=== PATIENT | male | born 1930 | race Caucasian/White ===

== ENCOUNTER 2016-08-14 00:25 | Inpatient (IN) | payer MEDICARE ==
[~2016-08-14] VITALS: Ht 172.7 cm; Wt 73.2 kg
[~2016-08-14 00:25] MED LIST: CIPRO750 MG PO; CIPROFLOXACN500 MG PO; CLONIDINE0.1 MG OR; CLONIDINE0.1 MG PO; DENIES CURRENT MEDS; LABETALOL100 MG OR; LISINOP/HCTZ1 TA1 PO; LISINOPRIL10 MG OR; LISINOPRIL20 MG OR; LORTAB 5 OR; MEDDOSEPAK OR; NAPROSYN500 MG PO; PERCOCET 5/325M1 TAB OR; PROCARDIA10 MG OR; ZYLOPRIM300 MG OR; [UNRECOGNIZED DRUG - REMARK]
--- NOTE | 2016-08-14 00:40 | NUR ---
UNABLE TO CONFIRM MEDICATIONS. PATIENT IS CONFUSED.
[2016-08-14 01:18] LABS: HEMATOCRIT 29.4 % (39.0-50.0); HEMOGLOBIN 9.5 g/dl (14.0-18.0); IMMATURE GRANULOCYTES 0.2 % (0.0-1.0); MEAN CELL VOLUME 96.1 fL CALC (80.0-100.0); MEAN CORPUSCULAR HGB CONC 32.3 g/L CALC (32.0-36.0); NEUT# 4.29 thou/uL (1.82-7.42); RED BLOOD COUNT 3.06 mill/uL (4.70-6.10); RED CELL DISTRI WIDTH 14.4 % (11.5-15.5)
[2016-08-14 01:19] LABS: URINE BILIRUBIN - DIPSTICK NEGATIVE (NEGATIVE); URINE BLOOD DIPSTICK SMALL (NEGATIVE); URINE CLARITY CLEAR; URINE COLOR YELLOW; URINE GLUCOSE - DIPSTICK NEGATIVE (NEGATIVE); URINE KETONE NEGATIVE (NEGATIVE); URINE LEUK ESTERASE NEGATIVE (NEGATIVE); URINE NITRITE - DIPSTICK NEGATIVE (Negative); URINE PH 5.5 (4.5-8.0); URINE PROTEIN - DIPSTICK 100 mg/dL (NEG-TRACE); URINE SPECIFIC GRAVITY 1.025
[2016-08-14 01:25] LABS: BARBITURATES NEGATIVE (NEGATIVE); COCAINE NEGATIVE (NEGATIVE); METHADONE NEGATIVE (NEGATIVE); OXCYCODONE NEGATIVE (NEGATIVE); TETRAHYDROCANNABIONOL NEGATIVE (NEGATIVE); TRICYLIC ANTIDEPRESSANTS NEGATIVE (NEGATIVE)
[2016-08-14 01:33] LABS: URINE HYALINE CAST RARE lpf (NONE-RARE); URINE MUCUS RARE hpf (NONE-FEW); URINE SQUAMOUS EPITHELIAL CELL RARE EPI/hpf (0-FEW); URINE WBC 0-2 WBC/hpf (0-5)
[2016-08-14 01:37] LABS: ALBUMIN 3.4 g/dL (3.2-5.0); BILIRUBIN, TOTAL 0.9 mg/dL (0.0-1.4); CALCIUM 8.8 mg/dL (8.4-10.2); CREATININE 3.5 mg/dL (0.7-1.3); POTASSIUM 3.6 mmol/l (3.5-5.1); TOTAL PROTEIN 6.6 g/dL (6.3-8.2)
--- NOTE | 2016-08-14 01:48 | NUR ---
PT WITH EYES CLOSED, NO DISTRESS NOTED. CALL AGUILAR IN REACH.
--- NOTE | 2016-08-14 02:12 | NUR ---
PT TO CT.
--- NOTE | 2016-08-14 02:26 | NUR ---
RETURNED FROM CT.
--- NOTE | 2016-08-14 02:56 | NUR ---
PT OPENS EYES TO VERBAL STIMULI. CONFUSED REGARDING HOSPITALIZATION. PROVIDED REORIENTATION.
--- NOTE | 2016-08-14 03:15 | NUR ---
REPORT TO HAY BUENO. BILAT LOWER EXTREWMTY EDEMA NOTED.
--- NOTE | 2016-08-14 03:27 | NUR ---
PTTO ICU VIA STRETCHER WITH 02, MONITOR, RN. ALL BELONGINGS WITH PT.
--- NOTE | 2016-08-14 03:30 | NUR ---
PT. ARRIVES FROM ER STRETCHER. MOVED FROM ER STRETCHER TO ICU BED WITH MAXIMUM ASSIST. ORIENTED TO PERSON ONLY UPON ARRIVAL TO UNIT. SLIGHTLY HYPERTENSIVE AT 170 SYSTOLIC. REORIENTED TO LOCATION AND SITUATION. UPDATED ON PLAN OF CARE. LUNG SOUNDS DIMINISHED TO BASES, BUT OTHERWISE CLEAR THROUGHOUT. DENIES COMPLAINTS OF PAIN. SPO2 STABLE AT 97-98% ON 2L NC. RESPS EVEN AND UNLABORED. SKIN WARM AND DRY. AFEBRILE AT 98.6. 3+ LOWER EXT EDEMA NOTED. PT. REPORTS MULTIPLE RECENT FALLS AT HOME. DENIES USE OF CANE OR WALKER.
[2016-08-14 04:00] VITALS: BP 170/81
--- NOTE | 2016-08-14 04:58 | NUR ---
PT. RESTING IN BED WITH EYES CLOSED. ZITHROMAX INFUSING WITHOUT SX OF INFILTRATION, EXTRAVASATION OR REACTION. VSS. RESPS EVEN AND UNLABORED.
--- NOTE | 2016-08-14 06:30 | NUR ---
PT. AROUSABLE TO LIGHT VERBAL STIMULI. REORIENTED TO SITUATION. SPEECH SLIGHTLY GARBLED INITIALLY UPON WAKING BUT IMPROVES WITH TIME. MEDICATED PER PHYSICIAN ORDERS. DENIES COMPLAINT OR NEED AT THIS TIME. LIGHTS DIMMED FOR COMFORT.
--- NOTE | 2016-08-14 07:45 | NUR ---
SETUP ASSISTANCE PROVIDED WITH AM MEAL TRAElizabeth
[2016-08-14 08:00] VITALS: BP 144/72
--- NOTE | 2016-08-14 08:30 | NUR ---
PT BOUGHT TO ROOM VIA BED ACCOMPANIED BY STAFF; PT AROUSABLE A/O X1; REORIENTATION UNSUCCESSFUL; IVF INFUSING WITHOUT DIFFICULTY; CALL AGUILAR WITHIN REACH; WILL CONTINUE TO MONITOR.
--- NOTE | 2016-08-14 11:00 | NUR ---
PT TO ROOM DOOR; PT PULLED IV ACCESS OUT; PT A/O X2; REORIENTATION TO TIME [id number]; PT ASSISTED BACK TO BED; BED ALARM IN PLACE FOR SAFETY; CALL AGUILAR WITHIN REACH; WILL CONTINUE TO MONITOR.
--- NOTE | 2016-08-14 13:30 | NUR ---
SIGNIFICANT OTHER IN TO VISIT PT; DR. BANGURA IN TO SEE PT; PLAN OF CARE DISCUSSED
[2016-08-14 15:31] VITALS: BP 123/68
--- NOTE | 2016-08-14 16:30 | NUR ---
PT REFUSE TO LET THIS NURSE PLACE NEW IV ACCESS; PT STATES THAT HE WANTS TO GO HOME,NOW; EXPLAIN TO PT THE NEED TO STAY OVER NIGHT; PT AGREEABLE TO STAY BUT NOT TO IV ACCESS.
--- NOTE | 2016-08-14 17:00 | NUR ---
PT UP IN CHAIR; BED ALARM IN PLACE FOR SAFETY; CALL AGUILAR WITHIN REACH; WILL CONTINUE TO MONITOR.
--- NOTE | 2016-08-14 19:20 | NUR ---
BEDSIDE REPORT RECEIVED FROM XIMENA RENAE. PT UP TO CHAIR AT THIS TIME. ALERT WITH CONFUSION, ASKED NURSE IF SHE WAS HIS DAUGHTER. DENIES PAIN. NO RESPIRATORY DISTRESS NOTED. BED ALARM IN PLACE. PLAN OF CARE DISCUSSED, PT NEEDS REINFORCEMENT. ENCOURAGED TO VERBALIZE CONCERNS. SAFETY MEASURES ARE IN PLACE. PT NEEDS ARE ANTICIPATED BY STAFF. CALL LIGHT WITHIN REACH.
[2016-08-14 19:22] VITALS: BP 101/56
[2016-08-14 23:32] VITALS: BP 134/74
--- NOTE | 2016-08-15 | NUR ---
PT SITTING UP IN BED SLEEPING INTERMITTENTLY. ALERT WITH CONFUSION. NEW IV PLACED TO RIGHT WRIST INFUSING ADEQUATELY. BED ALARM HAS SOUNDED 3 TIMES, ONE TIME OF WHICH PT WAS FOUND STANDING NEAR DOORWAY BELIEVING IT WAS MORNING AND TIME TO GO HOME. PT REDIRECTED BACK TO BED. PT REMOVED TELEMETRY MONTIOR X 2. REPLACED AND EXPLAINED TO PT. PT IN NO APPARENT DISTRESS. SAFETY MEASURES IN PLACE. CALL LIGHT WITHIN REACH.
--- NOTE | 2016-08-15 03:44 | NUR ---
PT INSISTENT ON GOING HOME AT THIS TIME. ALERT WITH CONFUSION AND DISORIENTED. STATES, "IS THIS A DREAM OR AM I REALLY IN THE HOSPITAL?" CONTINUES TO REMOVE TELEMETRY AND ATTEMPTING TO REMOVE IV. DOES NOT FOLLOW INSTRUCTION. TELEMETRY OFF AT THIS TIME. WILL CONTINUE TO MONITOR AGITATION. BED ALARM AND SAFETY MEASURES IN PLACE. PT NEEDS ARE ANTICIPATED BY STAFF. DOES NOT USE CALL LIGHT.
[2016-08-15 04:00] VITALS: BP 110/58
--- NOTE | 2016-08-15 07:18 | NUR ---
BEDSIDE REPORT RECEIVED FROM KARLA BRENNAN. PT SUPINE IN BED. DENIES PAIN. PT STATES "I DONT NEED A NURSE. WHERE'S MY TRUCK?" PT CONFUSED. RE-ORIENTED TO SITUATION, PLACE AND TIME. BED ALARM ATTACHED TO GOWN FOR SAFETY.
[2016-08-15 08:50] LABS: HEMATOCRIT 26.3 % (39.0-50.0); HEMOGLOBIN 8.5 g/dl (14.0-18.0); IMMATURE GRANULOCYTES 0.4 % (0.0-1.0); MEAN CELL VOLUME 96.3 fL CALC (80.0-100.0); MEAN CORPUSCULAR HGB 31.1 pG CALC (26.0-32.0); MEAN CORPUSCULAR HGB CONC 32.3 g/L CALC (32.0-36.0); NEUT# 5.68 thou/uL (1.82-7.42); RED BLOOD COUNT 2.73 mill/uL (4.70-6.10); RED CELL DISTRI WIDTH 14.6 % (11.5-15.5)
[2016-08-15 09:05] LABS: ALBUMIN 3.1 g/dL (3.2-5.0); CALCIUM 8.5 mg/dL (8.4-10.2); CREATININE 3.6 mg/dL (0.7-1.3); MAGNESIUM 1.7 mg/dL (1.6-2.3); POTASSIUM 3.6 mmol/l (3.5-5.1)
[2016-08-15 09:31] VITALS: BP 140/77
[2016-08-15 11:04] VITALS: BP 147/84
--- NOTE | 2016-08-15 13:17 | NUR ---
DR. BANGURA IN TO SEE PT AT THIS TIME.
[2016-08-15] MEDS ORDERED: ZITHROMAX500 MG PO (13:19)
[2016-08-15] MEDS ORDERED: VANTIN200 M1 PO (13:26)
--- NOTE | 2016-08-15 13:52 | NUR ---
Discharge instructions given. Patient verbalizes understanding of same. Discharged in stable condition via Wheelchair to Home with significant other. All belongings sent with pt.
== END 2016-08-15 14:00 | disposition home health service (06) | DRG 193 ==
LOC: ENPENDDIS → ED 00:25 → ED-I 02:49 → ICU 02:50 → ED 02:50 → MS2 08:30
PROVIDERS: Emergency Medicine; Internal Medicine; ADMIT Internal Medicine; ATTEND Internal Medicine
DX: J18.9 Pneumonia, unspecified organism (principal); G93.40 Encephalopathy, unspecified; N17.9 Acute kidney failure, unspecified; N18.4 Chronic kidney disease, stage 4 (severe); I11.0 Hypertensive heart disease with heart failure; F03.90 Unspecified dementia, unspecified severity, without behavioral disturbance, psychotic disturbance, mood disturbance, and anxiety; Z90.5 Acquired absence of kidney; Z91.81 History of falling; Z85.51 Personal history of malignant neoplasm of bladder; Z85.528 Personal history of other malignant neoplasm of kidney; Z85.038 Personal history of other malignant neoplasm of large intestine

== ENCOUNTER 2016-12-15 12:43 | Emergency (ER) | payer MEDICARE ==
[~2016-12-15] VITALS: Ht 172.7 cm; Wt 79.5 kg
[~2016-12-15 12:43] MED LIST changes: +VANTIN200 M1 PO; +ZITHROMAX500 MG PO
[2016-12-15 13:41] VITALS: BP 159/96
== END 2016-12-15 13:45 | disposition home or self-care (01) ==
LOC: ED 12:43
DX: S50.812A Abrasion of left forearm, initial encounter (principal); S50.811A Abrasion of right forearm, initial encounter; W19.XXXA Unspecified fall, initial encounter; Y92.009 Unspecified place in unspecified non-institutional (private) residence as the place of occurrence of the external cause